=== PATIENT | male | born 1960 | race Caucasian/White ===

== ENCOUNTER → 2018-04-10 | Outpatient (CLI) | payer BC | END | disposition home or self-care (01) | LOC: LAB SHORT 13:49 → LAB 13:49 | DX: N39.0 Urinary tract infection, site not specified (principal) | CPT/HCPCS: 87077; 87086; 87186 ==

== ENCOUNTER 2020-03-31 12:13 | Day surgery (SDC) | payer BC ==
[~2020-03-31] VITALS: Ht 160 cm; Wt 78.7 kg
[~2020-03-31 12:13] MED LIST: ATOR40TA; Aspir 8181 MG; LISI20; TAMS.4ER PO
--- NOTE | 2020-03-31 15:07 | NUR ---
03/31/20 1507 Lorena Johnson PT. REFUSED ANYTHING TO DRINK.
== END 2020-03-31 14:50 | disposition home or self-care (01) ==
LOC: ORSCSDS 12:13
PROVIDERS: Internal Medicine Gastroenterology
PROC: 0DBN8ZX Excision of Sigmoid Colon, Via Natural or Artificial Opening Endoscopic, Diagnostic (ICD-10-PCS; principal; 2020-03-31 13:30)
PROC: 0DBK8ZX Excision of Ascending Colon, Via Natural or Artificial Opening Endoscopic, Diagnostic (ICD-10-PCS; principal; 2020-03-31 13:30)
DX: Z12.11 Encounter for screening for malignant neoplasm of colon (principal); D12.3 Benign neoplasm of transverse colon; K62.1 Rectal polyp; K57.30 Diverticulosis of large intestine without perforation or abscess without bleeding; E66.9 Obesity, unspecified; Z68.31 Body mass index [BMI] 31.0-31.9, adult; Z79.82 Long term (current) use of aspirin; Z79.899 Other long term (current) drug therapy
CPT/HCPCS: 86803; 88305; J2704; J7120

== ENCOUNTER → 2023-10-23 | Outpatient (CLI) | payer BC ==
[2023-10-23 19:47] LABS: CHOL/HDL RATIO 2.6; Cholesterol 127 mg/dL (50-200); HDL Cholesterol 49 mg/dL (>39); LDL/HDL RATIO 1.2; Low Density Lipoprotein Chol 60 mg/dL (0-110); Triglycerides 89 mg/dL (30-160); Very Low Density Lipoprot Chol 17 mg/dL (6-32)
[2023-10-25 08:11] LABS: A/G RATIO 2.1 (1.2-2.2); CALCIUM, SERUM 9.3 mg/dL (8.6-10.2); CREATININE, SERUM 0.97 mg/dL (0.76-1.27); GLOBULIN, TOTAL 2.1 g/dL (1.5-4.5); POTASSIUM, SERUM 4.2 mmol/L (3.5-5.2); PROTEIN, TOTAL, SERUM 6.5 g/dL (6.0-8.5)
== END | disposition home or self-care (01) ==
LOC: LAB 17:13 → LAB SHORT 17:13
PROVIDERS: Hospitalist
DX: Z12.5 Encounter for screening for malignant neoplasm of prostate (principal); I10 Essential (primary) hypertension; E78.2 Mixed hyperlipidemia
CPT/HCPCS: 80053; 80061; G0103

== ENCOUNTER → 2025-02-05 | Outpatient (CLI) | payer BC ==
[2025-02-05 22:33] LABS: Anion Gap 9 mmol/L (3-11); Blood Urea Nitrogen 17 mg/dL (8-24); Bun/Creatinine Ratio 20.4 (12.0-20.0); CHOL/HDL RATIO 2.6; CO2, Blood 26 mmol/L (21-32); Calcium, Blood 9.2 mg/dL (8.5-10.1); Chloride, Blood 109 mmol/L (98-108); Cholesterol 121 mg/dL (50-200); Creatinine, Blood 0.84 mg/dL (0.60-1.20); Glomerular Filtration Rate 97 (60-); Glucose, Blood 100 mg/dL (70-99); HDL Cholesterol 47 mg/dL (>39); LDL/HDL RATIO 1.1; Low Density Lipoprotein Chol 54 mg/dL (0-110); Potassium, Blood 4.4 mmol/L (3.5-5.5); Sodium, Blood 140 mmol/L (136-145); Triglycerides 101 mg/dL (30-160); Very Low Density Lipoprot Chol 20 mg/dL (6-32)
== END ==
LOC: LAB 10:25 → LAB SHORT 10:25
PROVIDERS: Hospitalist
DX: I10 Essential (primary) hypertension (principal); E78.2 Mixed hyperlipidemia
CPT/HCPCS: 80048; 80061